=== PATIENT | male | born 1965 | race Caucasian/White ===

== ENCOUNTER 2019-05-23 16:52 | Emergency (ER) | payer OTHER ==
[2019-05-23 17:34] LABS: #Eosinphils 0.1 thou/uL (0.0-0.7); #Lymphocytes 1.7 thou/uL (1.20-3.40); #Monocytes 0.5 thou/uL (0.11-0.59); #Neutrophils 4.9 thou/uL (1.40-6.50); %Basophils 0.6 % (0.0-1.0); %Eosinophils 1.2 % (0.0-10.0); %Lymphocytes 23.4 % (21.0-51.0); %Monocytes 6.9 % (0.0-10.0); %Neutrophils 67.8 % (42.0-75.0); Hemoglobin 12.5 g/dL (14.0-18.0); Mean Corpuscular HGB CONC 36.1 g/dL (32.0-36.0); Mean Corpuscular Hemoglobin 34.8 pg (27.0-31.0); Mean Corpuscular Volume 96.3 fL (78.0-98.0); Mean Platelet Volume 6.9 fL (7.4-10.4); Platelet Count 216 thou/uL (130-400); RBC Distribution Width 11.7 % (11.5-14.5); Red Blood Cell (RBC) Count 3.59 mill/uL (4.70-6.10); White Blood Cell (WBC) Count 7.3 thou/uL (4.8-10.8)
[2019-05-23 17:40] LABS: PTT 25.8 SEC (22.9-36.1); Prothrombin Time 12.7 SEC (12.0-14.7)
--- NOTE | 2019-05-23 17:42 | CT ---
CT Brain WO Con: 05/23/2019 5:24 PM CLINICAL HISTORY: Left-sided weakness with headache. IMAGING TECHNIQUE: Multiple CT images were obtained of the brain without IV contrast. COMPARISON: None. FINDINGS: Infarct: No acute infarct is present. There is mild chronic small vessel white matter ischemic banerjee e. Hemorrhage: None.. Hydrocephalus: None.. Basal cisterns: Normal.. Cerebral parenchyma: Normal.. Midline shift: None.. Cerebellum: Normal. Brainstem: Normal. OTHER: Calvarium: Intact.. Visualized Paranasal sinuses: Clear.. Extracranial soft tissues:Normal. IMPRESSION: No acute intracranial abnormality.
[2019-05-23 17:57] LABS: ALT (SGPT) 13 U/L (8-55); AST (SGOT) 13 U/L (5-34); Albumin 3.5 g/dL (3.5-5.0); Alkaline Phosphatase 57 U/L (40-150); Anion Gap 11 mmol/L (10-20); BUN (Urea Nitrogen) 14 mg/dL (8.4-25.7); Bilirubin, Total 0.4 mg/dL (0.2-1.2); Calc. Creatinine Clearance 0 mL/min (70-130); Calcium 8.8 mg/dL (7.8-10.44); Carbon Dioxide 22 mmol/L (22-29); Chloride 108 mmol/L (98-107); Estimated GFR-MDRD Greater than 90; Globulin 2.9 g/dL (2.4-3.5); Glucose 140 mg/dL (70-105); Lipase 11 U/L (8-78); Protein, Total 6.4 g/dL (6.0-8.3); Sodium 137 mmol/L (136-145)
[2019-05-23] MEDS ORDERED: Meclizine HCl 25 MG TAB ONE (18:26)
[2019-05-23] MEDS ORDERED: diphenhydrAMINE 50 MG/ML VIAL ONE (18:27)
[2019-05-23] MEDS ORDERED: Metoclopramide HCl 10 MG/2 ML VIAL ONE (20:27)
[2019-05-23] MEDS ORDERED: Ketorolac Tromethamine 30 MG/ML VIAL ONE (21:41)
== END 2019-05-23 22:30 ==
LOC: ERS 16:52 → EEVIPCON 16:52 → ERS 22:30
DX: R42 Dizziness and giddiness (principal); R29.818 Other symptoms and signs involving the nervous system; I10 Essential (primary) hypertension; Z87.891 Personal history of nicotine dependence; E11.9 Type 2 diabetes mellitus without complications; Z86.73 Personal history of transient ischemic attack (TIA), and cerebral infarction without residual deficits; I25.2 Old myocardial infarction; Z79.4 Long term (current) use of insulin; Z79.84 Long term (current) use of oral hypoglycemic drugs
CPT/HCPCS: 36415; 70450; 80053; 83690; 84484; 85025; 85610; 85730; 93005; 96361; 96365; 96375; J1200; J1885; J2765; J8597

== ENCOUNTER 2019-08-03 13:34 | Emergency (ER) | payer OTHER ==
[2019-08-03 14:23] LABS: #Eosinphils 0.1 thou/uL (0.0-0.7); #Lymphocytes 1.2 thou/uL (1.20-3.40); #Monocytes 0.4 thou/uL (0.11-0.59); %Basophils 0.3 % (0.0-1.0); %Eosinophils 0.7 % (0.0-10.0); %Monocytes 3.8 % (0.0-10.0); %Neutrophils 84.3 % (42.0-75.0); Hemoglobin 13.3 g/dL (14.0-18.0); Mean Corpuscular Hemoglobin 34.5 pg (27.0-31.0); Mean Corpuscular Volume 98.7 fL (78.0-98.0); Mean Platelet Volume 7.1 fL (7.4-10.4); Platelet Count 205 thou/uL (130-400); RBC Distribution Width 11.7 % (11.5-14.5); Red Blood Cell (RBC) Count 3.85 mill/uL (4.70-6.10); White Blood Cell (WBC) Count 10.7 thou/uL (4.8-10.8)
--- NOTE | 2019-08-03 14:37 | CT ---
Exam: Head CT without contrast HISTORY: Headache. COMPARISON: 05/23/2019 FINDINGS: Hemorrhage: No intraparenchymal hemorrhage or extra-axial hematoma. Brain parenchyma: Cortical carlos-white matter differentiation is preserved. No mass effect or midline shift. Basilar cisterns are patent.Stable white matter hypodensities due to chronic small vessel ischemic change. Ventricular system: Ventricles and sulci are patent and symmetric. Calvarium: Intact. Sinuses and mastoid air cells: Adequate aeration. IMPRESSION: No acute intracranial process.
[2019-08-03] MEDS ORDERED: Ondansetron PF 4 MG/2 ML Vial ONE (14:46)
[2019-08-03 14:51] LABS: ALT (SGPT) 14 U/L (8-55); AST (SGOT) 13 U/L (5-34); Albumin 3.6 g/dL (3.5-5.0); Alkaline Phosphatase 64 U/L (40-110); Anion Gap 10 mmol/L (10-20); BUN (Urea Nitrogen) 14 mg/dL (8.4-25.7); Bilirubin, Total 0.5 mg/dL (0.2-1.2); Calc. Creatinine Clearance 0 mL/min (70-130); Calcium 8.9 mg/dL (7.8-10.44); Carbon Dioxide 25 mmol/L (22-29); Chloride 107 mmol/L (98-107); Estimated GFR-MDRD Greater than 90; Globulin 3.4 g/dL (2.4-3.5); Glucose 156 mg/dL (70-105); Potassium 4.1 mmol/L (3.5-5.1); Sodium 138 mmol/L (136-145)
[2019-08-03] MEDS ORDERED: Acetaminophen 500 MG TAB ONE (15:07)
== END 2019-08-03 15:50 | disposition home or self-care (01) ==
LOC: ERS 13:34
DX: R51 Headache (principal); E11.9 Type 2 diabetes mellitus without complications; I25.2 Old myocardial infarction; I10 Essential (primary) hypertension; Z87.891 Personal history of nicotine dependence; Z79.899 Other long term (current) drug therapy
CPT/HCPCS: 36415; 70450; 80053; 83605; 84443; 85025; 93005; 96374; J2405

== ENCOUNTER 2023-05-29 12:55 | Observation (INO) | payer OTHER ==
[2023-05-29] MEDS ORDERED: Senokot S 8.6-50 MG TAB PO PRN (13:28)
[2023-05-29] MEDS ORDERED: Ondansetron PF 4 MG/2 ML Vial IVP PRN (13:28)
[2023-05-29] MEDS ORDERED: Ondansetron ODT 4 MG TAB PO PRN (13:28)
[2023-05-29] MEDS ORDERED: Calcium Carbonate 500 MG ChewTAB PO PRN (13:28)
[2023-05-29 13:32] VITALS: BMI 31.6
[2023-05-29 14:11] LABS: Troponin I Less than 0.010 ng/mL (< 0.028)
[2023-05-29] MEDS ORDERED: Aspirin Chewable 81 MG TAB PO SCH (14:15)
[2023-05-29] MEDS ORDERED: HumaLOG 300 UNITS/3 ML VIAL SC PRN ×2 (16:04)
[2023-05-29] MEDS ORDERED: Dextrose 5% in Water 1,000 ML IV PRN (16:04)
[2023-05-29] MEDS ORDERED: Glucagon 1 MG/ML KIT IM PRN (16:04)
[2023-05-29] MEDS ORDERED: Dextrose 50% Abboject 50 ML SYRINGE SLOW IVP PRN (16:04)
[2023-05-29] MEDS: metFORMIN 500 MG TAB PO SCH (17:12)
[2023-05-29] MEDS: Insulin NPH Human Isophane 100 UNITS/ML (10 ML VIAL) SC SCH (17:12)
[2023-05-29 18:17] LABS: Troponin I Less than 0.010 ng/mL (< 0.028)
[2023-05-29] MEDS: Topiramate 100 MG TAB PO SCH (20:47)
[2023-05-29] MEDS: Furosemide 40 MG TAB PO SCH (20:48)
[2023-05-29] MEDS ORDERED: Famotidine 20 MG TAB PO SCH (21:00)
[2023-05-29] MEDS ORDERED: Aripiprazole 10 MG TAB PO SCH (21:00)
[2023-05-29] MEDS ORDERED: Atorvastatin Calcium 40 MG TAB PO SCH (21:00)
[2023-05-30 05:02] LABS: #Basophils 0.1 thou/uL (0.0-0.2); #Eosinphils 0.5 thou/uL (0.0-0.7); #Monocytes 0.8 thou/uL (0.11-0.59); #Neutrophils 5.5 thou/uL (1.40-6.50); %Basophils 0.9 % (0.0-1.0); %Eosinophils 5.6 % (0.0-10.0); %Lymphocytes 25.3 % (21.0-51.0); %Monocytes 8.4 % (0.0-10.0); %Neutrophils 59.5 % (42.0-75.0); Hematocrit 37.8 % (42.0-52.0); Hemoglobin 13.2 g/dL (14.0-18.0); Mean Corpuscular HGB CONC 34.9 g/dL (32.0-36.0); Mean Corpuscular Hemoglobin 33.5 pg (27.0-31.0); Mean Corpuscular Volume 95.9 fl (78.0-98.0); Mean Platelet Volume 9.5 fL (7.4-10.4); Platelet Count 198 10x3/uL (130-400); RBC Distribution Width 12.7 % (11.5-14.5); Red Blood Cell (RBC) Count 3.94 mill/uL (4.70-6.10); White Blood Cell (WBC) Count 9.2 10x3/uL (4.8-10.8)
[2023-05-30 05:16] LABS: Hemoglobin A1c 6.1 % (4.0-6.0)
[2023-05-30 05:32] LABS: ALT (SGPT) 15 U/L (8-55); AST (SGOT) 17 U/L (5-34); Albumin 3.4 g/dL (3.5-5.0); Alkaline Phosphatase 67 U/L (40-110); Anion Gap 11 mmol/L (10-20); BUN (Urea Nitrogen) 22 mg/dL (8.4-25.7); Bilirubin, Total 0.3 mg/dL (0.2-1.2); Calc. Creatinine Clearance 99 mL/min (70-130); Carbon Dioxide 21 mmol/L (22-29); Cardiac Risk 2.6 (Less than 4.5); Chloride 108 mmol/L (98-107); Cholesterol 146 mg/dl (< 200 Desired); Estimated GFR 88; Globulin 3.6 g/dL (2.4-3.5); Glucose 99 mg/dL (70-105); HDL Cholesterol 56 mg/dL (>60 Neg Risk); LDL Cholesterol, Calculated 83 mg/dL; Potassium 3.9 mmol/L (3.5-5.1); Sodium 136 mmol/L (136-145); Triglycerides 35 mg/dL (Less than 150)
[2023-05-30] MEDS: Insulin NPH Human Isophane 100 UNITS/ML (10 ML VIAL) SC SCH ×2 (07:53→16:04)
[2023-05-30] MEDS ORDERED: Ferrous Sulfate 325 MG TAB PO SCH (08:00)
[2023-05-30] MEDS ORDERED: Clopidogrel Bisulfate 75 MG TAB PO SCH (09:00)
[2023-05-30] MEDS ORDERED: Sertraline 100 MG TAB PO SCH (09:00)
[2023-05-30] MEDS ORDERED: Spironolactone 25 MG TAB PO SCH (09:00)
[2023-05-30] MEDS ORDERED: Aspirin Chewable 81 MG TAB PO SCH (09:00)
[2023-05-30 11:03] VITALS: BP 159/79; TEMP 97.5
[2023-05-30] MEDS: metFORMIN 500 MG TAB PO SCH ×2 (13:25→16:04)
[2023-05-30] MEDS: Furosemide 40 MG TAB PO SCH (13:26)
[2023-05-30] MEDS: Topiramate 100 MG TAB PO SCH (13:26)
[2023-05-30] MEDS ORDERED: Regadenoson 0.4 MG/5 ML SYRINGE ONE (13:30)
== END 2023-05-30 17:00 ==
LOC: 2SE 12:55 → EEVIPCON 12:55
PROVIDERS: ADMIT Internal Medicine; ATTEND Internal Medicine
DX: R07.89 Other chest pain (principal); F32.A Depression, unspecified; I11.0 Hypertensive heart disease with heart failure; I50.30 Unspecified diastolic (congestive) heart failure; E11.9 Type 2 diabetes mellitus without complications; I63.9 Cerebral infarction, unspecified; F39 Unspecified mood [affective] disorder; D64.9 Anemia, unspecified; I25.10 Atherosclerotic heart disease of native coronary artery without angina pectoris; Z95.5 Presence of coronary angioplasty implant and graft; Z88.8 Allergy status to other drugs, medicaments and biological substances; Z88.6 Allergy status to analgesic agent; Z79.02 Long term (current) use of antithrombotics/antiplatelets; Z79.84 Long term (current) use of oral hypoglycemic drugs; Z79.899 Other long term (current) drug therapy
CPT/HCPCS: 36415; 36416; 78452; 80053; 80061; 83036; 85025; 93017; A9500; G0378; J1815; J2785

== ENCOUNTER 2024-02-20 15:45 | Observation (INO) | payer OTHER ==
[2024-02-20 16:22] VITALS: BMI 29.2
[2024-02-20] MEDS ORDERED: Glucagon 1 MG/ML KIT IM PRN (18:28)
[2024-02-20] MEDS ORDERED: Ondansetron PF 4 MG/2 ML Vial IVP PRN (18:28)
[2024-02-20] MEDS ORDERED: HumaLOG 300 UNITS/3 ML VIAL SC PRN (18:28)
[2024-02-20] MEDS ORDERED: Nitroglycerin 0.4 MG TAB (25 Tab Bottle) SL PRN (18:28)
[2024-02-20] MEDS ORDERED: Dextrose 50% Abboject 50 ML SYRINGE SLOW IVP PRN (18:28)
[2024-02-20] MEDS ORDERED: Dextrose 5% in Water 1,000 ML IV PRN (18:28)
[2024-02-20] MEDS ORDERED: Senokot S 8.6-50 MG TAB PO PRN (18:28)
[2024-02-20] MEDS ORDERED: Ondansetron ODT 4 MG TAB PO PRN (18:28)
[2024-02-20 19:55] LABS: Magnesium 2.1 mg/dL (1.6-2.6)
[2024-02-20 20:03] LABS: Troponin I Less than 0.010 ng/mL (< 0.028)
[2024-02-20] MEDS: Sodium Chloride 0.9% 1,000 ML IV SCH (20:38)
[2024-02-20] MEDS: Aripiprazole 10 MG TAB PO SCH (20:40)
[2024-02-20] MEDS: Topiramate 100 MG TAB PO SCH (20:40)
[2024-02-20] MEDS: Atorvastatin Calcium 40 MG TAB PO SCH (20:41)
[2024-02-20] MEDS: Carvedilol 6.25 MG TAB PO SCH (20:41)
[2024-02-20] MEDS: Famotidine 20 MG TAB PO SCH (20:42)
[2024-02-20 23:03] LABS: Troponin I 0.019 ng/mL (< 0.028)
[2024-02-21 05:18] LABS: #Basophils 0.06 10x3/uL (0.0-0.2); %Basophils 0.8 % (0.0-1.0); %Eosinophils 2.6 % (0.0-10.0); %Lymphocytes 25.7 % (21.0-51.0); %Monocytes 10.6 % (0.0-10.0); Hematocrit 38.5 % (42.0-52.0); Hemoglobin 13.2 g/dL (14.0-18.0); Mean Corpuscular HGB CONC 34.3 g/dL (32.0-36.0); Mean Corpuscular Hemoglobin 32.8 pg (27.0-31.0); Mean Corpuscular Volume 95.5 fL (78.0-98.0); Mean Platelet Volume 10.1 fL (7.4-10.4); Platelet Count 194 10x3/uL (130-400); RBC Distribution Width 12.3 % (11.5-14.5); Red Blood Cell (RBC) Count 4.03 mill/uL (4.70-6.10)
[2024-02-21 05:40] LABS: Anion Gap 15 mmol/L (10-20); BUN (Urea Nitrogen) 29 mg/dL (8.4-25.7); Calc. Creatinine Clearance 89 mL/min (70-130); Calcium 9.1 mg/dL (7.8-10.44); Carbon Dioxide 21 mmol/L (22-29); Chloride 107 mmol/L (98-107); Estimated GFR 86; Glucose 98 mg/dL (70-105); Sodium 139 mmol/L (136-145)
[2024-02-21] MEDS: Sertraline 100 MG TAB PO SCH (08:07)
[2024-02-21] MEDS: Enoxaparin 40 MG (0.4 mL) SYRINGE SC SCH (08:07)
[2024-02-21] MEDS: Aspirin Chewable 81 MG TAB PO SCH (08:07)
[2024-02-21] MEDS: Loratadine 10 MG TAB PO SCH (08:07)
[2024-02-21] MEDS: Losartan 25 MG TAB PO SCH (08:07)
[2024-02-21] MEDS ORDERED: Isosorbide Mononitrate 60 MG ER.TAB PO SCH (09:00)
[2024-02-21] MEDS ORDERED: Regadenoson 0.4 MG/5 ML SYRINGE ONE (09:42)
[2024-02-21] MEDS ORDERED: Iopamidol-370 76% 500 ML MDV (1 ML CHARGE) ONE (10:16)
[2024-02-21 11:51] VITALS: BP 141/70; TEMP 97.7
[2024-02-21] MEDS: HumaLOG 300 UNITS/3 ML VIAL SC PRN (12:31)
== END 2024-02-21 19:24 ==
LOC: 2SW 15:46 → EEVIPCON 15:46 → 2SW 15:53
PROVIDERS: ADMIT Internal Medicine; ATTEND Internal Medicine
DX: R07.89 Other chest pain (principal); E78.5 Hyperlipidemia, unspecified; I11.0 Hypertensive heart disease with heart failure; I50.32 Chronic diastolic (congestive) heart failure; F32.A Depression, unspecified; K21.9 Gastro-esophageal reflux disease without esophagitis; M19.90 Unspecified osteoarthritis, unspecified site; D51.9 Vitamin B12 deficiency anemia, unspecified; E11.9 Type 2 diabetes mellitus without complications; Z98.41 Cataract extraction status, right eye; Z86.73 Personal history of transient ischemic attack (TIA), and cerebral infarction without residual deficits; Z98.42 Cataract extraction status, left eye; Z90.49 Acquired absence of other specified parts of digestive tract; Z98.890 Other specified postprocedural states; Z88.6 Allergy status to analgesic agent; Z88.2 Allergy status to sulfonamides; Z88.8 Allergy status to other drugs, medicaments and biological substances; Z79.82 Long term (current) use of aspirin; Z79.899 Other long term (current) drug therapy; Z95.1 Presence of aortocoronary bypass graft; Z79.84 Long term (current) use of oral hypoglycemic drugs; Z79.02 Long term (current) use of antithrombotics/antiplatelets; I10 Essential (primary) hypertension; I25.10 Atherosclerotic heart disease of native coronary artery without angina pectoris; Z87.891 Personal history of nicotine dependence; Z79.4 Long term (current) use of insulin
CPT/HCPCS: 36415; 36416; 71045; 71275; 78452; 80048; 80053; 83690; 83735; 84484; 85025; 85379; 93005; 93017; 96374; A9502; G0378; J1650; J1815; J2785; J3010; J7050; Q9967